=== PATIENT | female | born 2000 | race Two or more races ===

== ENCOUNTER 2025-04-11 00:45 | Inpatient (IN) | payer OTHER ==
[2025-04-11] MEDS: ELECTROLYTE-148 SOLN 1,000 ML IV SCH (01:50)
[2025-04-11 02:13] LABS: MEAN CELL VOLUME 80.5 fl (79.4-94.8)
[2025-04-11 02:14] LABS: ABSOLUTE IMMATURE GRANULOCYTES 0.04 x10^3/uL (0.0-0.031); BASOPHILS # 0.02 x10^3/uL (0.01-0.08); EOSINOPHIL % 1.1 % (0.7-5.8); EOSINOPHILS # 0.12 x10^3/uL (0.04-0.36); IMMATURE PLATELET FRACTION # 24.80 x10^3/uL; MCHC 32.4 g/dl (32.2-35.5); MEAN PLT VOLUME 12.8 fl (9.4-12.3); MONOCYTE # 0.94 x10^3/uL (0.24-0.86); MONOCYTE % 8.3 % (4.7-12.5); RDW 14.4 % (12.1-16.5)
[2025-04-11 02:30] VITALS: BMI 29.9
[2025-04-11 02:34] LABS: INR 0.95 (0.83-1.09); PROTHROMBIN TIME (PATIENT) 10.4 SEC (9.7-13.0)
[2025-04-11 02:36] LABS: CO2 24.0 mmol/L (21-32); GLUCOSE,RANDOM 86.0 mg/dL (74-106)
[2025-04-11 02:37] LABS: ACTIVATED PTT 24.7 SECONDS (25.2-36.5)
[2025-04-11 02:40] LABS: CREATININE 0.6 mg/dL (0.55-1.3)
[2025-04-11] MEDS ORDERED: FENTANYL/BUPIVACAINE/NS/PF - PCEA - 50 ML DISP.SYRIN EP ONE ×5 (04:28→20:44)
[2025-04-11] MEDS: FENTANYL/BUPIVACAINE/NS/PF - PCEA - 50 ML DISP.SYRIN EP SCH (05:10)
[2025-04-11] MEDS ORDERED: NALOXONE HCL 0.4 MG/ML VIAL IVPUSH PRN (05:19)
[2025-04-11] MEDS ORDERED: ACETAMINOPHEN 325 MG TABLET (FP) ONE ×3 (09:57→21:22)
[2025-04-11] MEDS: ACETAMINOPHEN 325 MG TABLET (FP) PO ONE (10:10)
[2025-04-11] MEDS ORDERED: ONDANSETRON 4 MG/2 ML VIAL ONE (11:04)
[2025-04-11] MEDS: ONDANSETRON 4 MG/2 ML VIAL IVPUSH ONE (11:15)
[2025-04-11] MEDS: OXYTOCIN 30 UNITS in 0.9% NS 30 UNIT/500 ML INFUS.BAG IVPB SCH (12:00)
[2025-04-11] MEDS: ACETAMINOPHEN 325 MG TABLET (FP) PO PRN (16:52)
[2025-04-11] MEDS ORDERED: BUPIVACAINE HCL/PF 0.25% (2.5MG/ML) 10 ML VIAL ONE (17:54)
[2025-04-11] MEDS ORDERED: FENTANYL CITRATE/PF 50 MCG/ML VIAL ONE (17:54)
[2025-04-11] MEDS ORDERED: OXYTOCIN 20 UNITS in 0.9% NS 20 UNIT/1,000 ML INFUS.BAG IV ONE (20:19)
[2025-04-11] MEDS ORDERED: LIDOCAINE HCL 1% PRESERVATIVE FREE - 30ML VIAL ONE (20:20)
[2025-04-12] MEDS: OXYTOCIN 20 UNITS in 0.9% NS 20 UNIT/1,000 ML INFUS.BAG IV SCH (00:57)
[2025-04-12] MEDS ORDERED: MISOPROSTOL 200 MCG TABLET ONE (01:07)
[2025-04-12] MEDS: MISOPROSTOL 200 MCG TABLET PR ONE (01:15)
[2025-04-12] MEDS ORDERED: BISACODYL 10 MG SUPP.RECT RC PRN (01:24)
[2025-04-12] MEDS ORDERED: MISOPROSTOL 100 MCG TABLET PV ONE (01:25)
[2025-04-12 01:49] LABS: CORD BASE EXCESS -6.7 mmol/L (0-2); CORD HCO3 18.2 mmHg (20-29); CORD PCO2 35.1 mmHg (30-78); CORD pH 7.333 (7.14-7.44)
[2025-04-12] MEDS ORDERED: IBUPROFEN 600 MG TABLET (FP) PO ONE (02:34)
[2025-04-12] MEDS: IBUPROFEN 600 MG TABLET (FP) PO PRN (02:36)
[2025-04-12] MEDS ORDERED: LABETALOL HCL 200 MG TABLET (FP) ONE (02:41)
[2025-04-12] MEDS: LABETALOL HCL 200 MG TABLET (FP) PO SCH ×2 (02:42→08:24)
[2025-04-12] MEDS ORDERED: FENTANYL CITRATE/PF 50 MCG/ML VIAL ONE ×2 (03:10→03:49)
[2025-04-12] MEDS ORDERED: ONDANSETRON 4 MG/2 ML VIAL ONE (03:37)
[2025-04-12] MEDS ORDERED: CLINDAMYCIN PHOSPHATE 600 MG/4 ML VIAL ONE (03:40)
[2025-04-12] MEDS ORDERED: OXYTOCIN 10 UNITS/ML VIAL ONE ×4 (03:49→04:39)
[2025-04-12] MEDS ORDERED: MIDAZOLAM HCL 2 MG/2 ML SINGLE DOSE VIAL ONE (04:10)
[2025-04-12] MEDS: ACETAMINOPHEN 325 MG TABLET (FP) PO PRN (09:45)
[2025-04-12 21:04] VITALS: RESP 18
[2025-04-13 07:56] LABS: ABSOLUTE IMMATURE GRANULOCYTES 0.07 x10^3/uL (0.0-0.031); BASOPHILS # 0.03 x10^3/uL (0.01-0.08); EOSINOPHIL % 1.9 % (0.7-5.8); EOSINOPHILS # 0.26 x10^3/uL (0.04-0.36); MCHC 31.2 g/dl (32.2-35.5); MEAN CELL VOLUME 83.4 fl (79.4-94.8); MEAN PLT VOLUME 12.3 fl (9.4-12.3); MONOCYTE # 1.16 x10^3/uL (0.24-0.86); MONOCYTE % 8.3 % (4.7-12.5); RDW 14.7 % (12.1-16.5)
[2025-04-14 08:48] VITALS: BP 128/79; PULSE 80; TEMP 98
[2025-04-14] MEDS: WITCH HAZEL 50% (TUCKS) 40 PAD/JAR PAD TP PRN (12:44)
[2025-04-14] MEDS: BENZOCAINE 20% 57 GM BOTTLE TP PRN (12:45)
[2025-04-14] MEDS: BENZOCAINE 28 GM HEMORRHOIDAL OINTMENT TP PRN (12:45)
== END 2025-04-14 13:22 | disposition home or self-care (01) | DRG 560 ==
LOC: JLDR 00:45 → J3W 04-12 04:00
PROVIDERS: ADMIT Obstetrics & Gynecology; ATTEND Obstetrics & Gynecology
PROC: 0KQM0ZZ Repair Perineum Muscle, Open Approach (ICD-10-PCS; principal; 2025-04-12)
DX: O70.1 Second degree perineal laceration during delivery (principal); O77.0 Labor and delivery complicated by meconium in amniotic fluid; Z3A.39 39 weeks gestation of pregnancy; Z37.0 Single live birth
CPT/HCPCS: 36415; 36600; 59409; 80048; 82803; 85025; 85610; 85730; 86780; 86850; 86900; 86901